=== PATIENT | female | born 1940 | race Caucasian/White ===

== ENCOUNTER 2018-12-11 13:58 | Inpatient (IN) | payer MEDICARE, BC ==
[2018-12-11] MEDS: Sodium Chloride 0.9% with KCl 1,000 ML IV SCH (17:00)
[2018-12-11] MEDS: Piperacillin/Tazobactam 2.25 GM in Sodium Chloride 0.9% 50 ML IV SCH ×2 (17:22→22:47)
--- NOTE | 2018-12-11 17:36 | PCM.HP ---
H&P History of Present Illness - General Date of Service: 12/11/18 Admit Problem/Dx: Admission Diagnosis/Problem Admission Diagnosis/Problem Urinary tract infection Source of Information: Patient, Family History Limitations: Reports: No Limitations - History of Present Illness Initial Comments - Free Text/Narative: 78 yr female presents to clinic today with some weakness, fatigue, decrease in appetite, and some confusion. Recent travel to [facility] and asking about possible infection from this out of state vacation. They have been home for about 7 days and did have air travel with the vacation. Pt has no symptoms of burning of urination and no CVA tenderness. Kindly refer to clinic notes for this admission assessment, scanned in to record. - Related Data Allergies/Adverse Reactions: Allergies Allergy/AdvReac Type Severity Reaction Status Date / Time Sulfa (Sulfonamide Allergy Unknown Other Verified 12/11/18 16:15 Antibiotics) H&P Review of Systems - Review of Systems: Review Of Systems: See Below General: Reports: Weakness, Fatigue Pulmonary: Denies: Shortness of Breath, Wheezing Cardiovascular: Denies: Chest Pain, Palpitations Gastrointestinal: Reports: Decreased Appetite Genitourinary: Denies: Dysuria, Frequency, Burning Musculoskeletal: Reports: No Symptoms Skin: Reports: No Symptoms Psychiatric: Reports: Confusion. Denies: Depression, Anxiety Neurological: Denies: Headache, Numbness, Trouble Speaking Hematologic/Lymphatic: Reports: Easy Bleeding (on Coumadin) Immunologic: Reports: No Symptoms Exam - Exam Exam: See Below - Vital Signs Vital Signs: Last Vital Signs Temp 97.6 F 12/11/18 16:00 Pulse 108 H 12/11/18 16:00 Resp 10 L 12/11/18 16:00 BP 142/79 H 12/11/18 16:00 Pulse Ox 98 12/11/18 16:00 Weight: 145 lb 12.8 oz - Exam General: Alert, Oriented HEENT: PERRLA, Mucosa Moist & [place], Posterior Pharynx Clear Neck: Supple, Trachea Midline, Full Range of Motion Lungs: Clear to Auscultation, Normal Respiratory Effort Cardiovascular: Irregular Rhythm GI/Abdominal Exam: Normal Bowel Sounds, Soft, Non-Tender Back Exam: Normal Inspection, Full Range of Motion. No: CVA Tenderness (R), CVA Tenderness (L) Extremities: Normal Inspection, Normal Range of Motion, Non-Tender, No Pedal Edema Skin: Warm, Dry Neuro Extensive - Mental Status: Alert, Oriented x3, Normal Mood/Affect - Patient Data Lab Results Last 24 hrs: Laboratory Results - last 24 hr 12/11/18 12/11/18 12/11/18 Range/Units 14:10 14:10 14:10 WBC 18.1 H D (4.0-11.0) K/uL RBC 4.60 (3.80-5.80) M/uL Hgb 15.5 (11.5-16.5) g/dL Hct 42.7 (37.0-47.0) % MCV 93 (76-96) fL MCH 33.7 H (27.0-32.0) pg MCHC 36.3 H (31.0-35.0) g/dL RDW 12.9 (11.0-16.0) % Plt Count 328 D (150-500) K/uL MPV 9.5 (6.0-10.0) fL Neut % (Auto) 86.7 H (45.0-70.0) % Lymph % (Auto) 5.2 L (20.0-40.0) % [place] % (Auto) 7.8 (3.0-10.0) % Eos % (Auto) 0.1 L (1.0-5.0) % Baso % (Auto) 0.2 (0.0-0.5) % Neut # (Auto) 15.73 H (2.00-7.50) K/uL Lymph # (Auto) 0.94 L (1.50-4.00) K/uL [place] # (Auto) 1.42 H (0.20-0.80) K/uL Eos # (Auto) 0.01 L (0.04-0.40) K/uL Baso # (Auto) 0.03 (0.02-0.10) K/uL PT (9.0-11.5) sec INR (1.0-3.5) Sodium 128 L (136-145) mmol/L Potassium 3.3 L D (3.5-5.1) mmol/L Chloride 88 L* (98-107) mmol/L Carbon Dioxide 27.4 (21.0-32.0) mmol/L Anion Gap 15.9 H (5.0-15.0) mmol/L BUN 37 H D (8-26) mg/dL Creatinine 1.64 H D (0.55-1.02) mg/dL Est Cr Clr Drug Dosing TNP Estimated GFR (MDRD) 30 L (>60) MLS/MIN BUN/Creatinine Ratio 22.6 (6-25) Glucose 147 H (74-100) mg/dL Hemoglobin A1c 6.0 (4.5-6.2) % Lactic Acid (0.90-1.70) mmol/L Calcium 9.3 (8.5-10.1) mg/dL Total Bilirubin 0.9 D (0.0-1.0) mg/dL AST 22 (15-37) U/L ALT 37 (12-78) U/L Alkaline Phosphatase 85 (46-116) U/L Total Protein 7.5 (6.4-8.2) g/dL Albumin 2.7 L (3.4-5.0) g/dL Globulin 4.8 H (2.2-4.2) g/dL Albumin/Globulin Ratio 0.6 L (0.8-2.0) TSH, Ultra Sensitive 2.551 (0.358-3.740) uIU/mL Urine Color Urine Appearance (CLEAR) Urine pH (5.0-8.0) Ur Specific [place] (1.003-1.030) Urine Protein (NEGATIVE) mg/dL Urine Glucose (UA) (NEGATIVE) mg/dL Urine Ketones (NEGATIVE) mg/dL Urine Occult Blood (NEGATIVE) Urine Nitrite (NEGATIVE) Urine Bilirubin (NEGATIVE) Urine Urobilinogen (0.2-1.0) E.U./dL Ur Leukocyte Esterase (NEGATIVE) Urine RBC /HPF Urine WBC /HPF Urine WBC Clumps /HPF Ur Squamous Epith Cells /HPF Urine Bacteria /HPF 12/11/18 12/11/18 12/11/18 Range/Units 14:10 14:10 16:15 WBC (4.0-11.0) K/uL RBC (3.80-5.80) M/uL Hgb (11.5-16.5) g/dL Hct (37.0-47.0) % MCV (76-96) fL MCH (27.0-32.0) pg MCHC (31.0-35.0) g/dL RDW (11.0-16.0) % Plt Count (150-500) K/uL MPV (6.0-10.0) fL Neut % (Auto) (45.0-70.0) % Lymph % (Auto) (20.0-40.0) % [place] % (Auto) (3.0-10.0) % Eos % (Auto) (1.0-5.0) % Baso % (Auto) (0.0-0.5) % Neut # (Auto) (2.00-7.50) K/uL Lymph # (Auto) (1.50-4.00) K/uL [place] # (Auto) (0.20-0.80) K/uL Eos # (Auto) (0.04-0.40) K/uL Baso # (Auto) (0.02-0.10) K/uL PT 32.8 H D (9.0-11.5) sec INR 3.5 D (1.0-3.5) Sodium (136-145) mmol/L Potassium (3.5-5.1) mmol/L Chloride (98-107) mmol/L Carbon Dioxide (21.0-32.0) mmol/L Anion Gap (5.0-15.0) mmol/L BUN (8-26) mg/dL Creatinine (0.55-1.02) mg/dL Est Cr Clr Drug Dosing Estimated GFR (MDRD) (>60) MLS/MIN BUN/Creatinine Ratio (6-25) Glucose (74-100) mg/dL Hemoglobin A1c (4.5-6.2) % Lactic Acid 2.25 H (0.90-1.70) mmol/L Calcium (8.5-10.1) mg/dL Total Bilirubin (0.0-1.0) mg/dL AST (15-37) U/L ALT (12-78) U/L Alkaline Phosphatase (46-116) U/L Total Protein (6.4-8.2) g/dL Albumin (3.4-5.0) g/dL Globulin (2.2-4.2) g/dL Albumin/Globulin Ratio (0.8-2.0) TSH, Ultra Sensitive (0.358-3.740) uIU/mL Urine Color Yellow Urine Appearance Cloudy (CLEAR) Urine pH 5.5 (5.0-8.0) Ur Specific [place] 1.020 (1.003-1.030) Urine Protein 100 H (NEGATIVE) mg/dL Urine Glucose (UA) Negative (NEGATIVE) mg/dL Urine Ketones Trace H (NEGATIVE) mg/dL Urine Occult Blood Small H (NEGATIVE) Urine Nitrite Negative (NEGATIVE) Urine Bilirubin Negative (NEGATIVE) Urine Urobilinogen 0.2 (0.2-1.0) E.U./dL Ur Leukocyte Esterase Moderate H (NEGATIVE) Urine RBC Not seen /HPF Urine WBC Packed H /HPF Urine WBC Clumps Occasional /HPF Ur Squamous Epith Cells Few /HPF Urine Bacteria Moderate H /HPF Result Diagrams: 12/11/18 14:10 12/11/18 14:10 - Problem List (1) UTI (urinary tract infection) SNOMED Code(s): 14148224 ICD Code: N39.0 - URINARY TRACT INFECTION, SITE NOT SPECIFIED Status: Acute Current Visit: Yes (2) Weakness SNOMED Code(s): 97200845 ICD Code: R53.1 - WEAKNESS Status: Acute Current Visit: Yes (3) Electrolyte imbalance SNOMED Code(s): 105705386 ICD Code: E87.8 - OTH DISORDERS OF ELECTROLYTE AND FLUID BALANCE, NEC Status: Acute Current Visit: Yes (4) Acute nontraumatic kidney injury SNOMED Code(s): 414748973355494 ICD Code: N17.9 - ACUTE KIDNEY FAILURE, UNSPECIFIED Status: Acute Current Visit: Yes Problem List Initiated/Reviewed/Updated: Yes Orders Last 24hrs: Active Orders 24 hr Category Date Time Status Admission Diagnosis [ADT] Stat ADT 12/11/18 15:56 Ordered Patient Status [ADT] Routine ADT 12/11/18 15:58 Ordered Bedrest Bathroom Privileges [RC] ASDIRECTED Care 12/11/18 16:00 Ordered Height and Weight [RC] DAILY Care 12/11/18 16:00 Ordered Intake and Output [RC] QSHIFT Care 12/11/18 16:01 Ordered Oxygen Therapy [RC] PRN Care 12/11/18 16:00 Ordered Vital Signs [RC] Q4H Care 12/11/18 16:00 Ordered Heart Healthy Diet [DIET] Diet 12/11/18 Dinner Ordered BASIC METABOLIC PANEL,BMP [CHEM] Routine Lab 12/12/18 07:30 Ordered CBC WITH AUTO DIFF [HEME] Routine Lab 12/12/18 07:30 Ordered CULTURE BLOOD [BC] Routine Lab 12/11/18 15:55 Ordered CULTURE BLOOD [BC] Routine Lab 12/11/18 15:56 Ordered CULTURE MRSA SURVEY [RM] Routine Lab 12/11/18 16:01 Ordered CULTURE URINE [RM] Routine Lab 12/11/18 14:10 Received INR,PT,PROTHROMBIN TIME [COAG] Routine Lab 12/12/18 07:30 Ordered Piperacillin/Tazobactam [Zosyn] 2.25 gm Med 12/11/18 16:15 Ordered Sodium Chloride 0.9% [Normal Saline] 50 ml IV Q6H Sodium Chloride 0.9% with KCl [Normal Saline with 40 Med 12/11/18 16:00 Ordered mEq KCl] 1,000 ml IV ASDIRECTED Medication Orders Potassium Chloride/Sodium Chloride (Normal Saline With 40 Meq Kcl) 1,000 mls @ 125 mls/hr IV ASDIRECTED [facility] Last Admin: 12/11/18 17:00 Dose: 125 mls/hr Piperacillin Sod/Tazobactam (Sod 2.25 gm/ Sodium Chloride) 50 mls @ 100 mls/hr IV Q6H [facility] Last Admin: 12/11/18 17:22 Dose: 100 mls/hr Assessment/Plan Comment:: Admit for UTI, weakness, electrolyte imbalance, and acute kidney injury Plan: Will start IV fluids, Blood cultureX2, lactic acid, PT/INR. Will start Zosyn 2.25 IV every 6 hour. Heart healthy diet VS q 4 hr Repeat CBC, BMP and PT/INR in am.
[2018-12-11] MEDS ORDERED: Warfarin 2 MG Tab PO SCH (18:00)
[2018-12-11] MEDS: Metoprolol Tartrate 100 MG Tab PO SCH (19:50)
[2018-12-12] MEDS: Piperacillin/Tazobactam 2.25 GM in Sodium Chloride 0.9% 50 ML IV SCH ×4 (04:22→22:31)
[2018-12-12] MEDS: Lisinopril 20 MG Tab PO SCH (08:19)
[2018-12-12] MEDS: Metoprolol Tartrate 100 MG Tab PO SCH ×2 (08:19→20:16)
--- NOTE | 2018-12-12 08:22 | PCM.PN ---
- General Info Date of Service: 12/12/18 Admission Dx/Problem (Free Text): Admission Diagnosis/Problem Admission Diagnosis/Problem Urinary tract infection Subjective Update: 78 yr female with UTI and confusion and decrease in appetite. She is feeling better today, but little appetite. States she would prefer to be home and sleep in own bed. Functional Status: Reports: Pain Controlled, Tolerating Diet, Ambulating, Urinating - Review of Systems General: Reports: No Symptoms HEENT: Reports: No Symptoms Pulmonary: Reports: No Symptoms Cardiovascular: Reports: No Symptoms Gastrointestinal: Reports: Other (States BM yesterday) Genitourinary: Denies: Dysuria, Frequency Musculoskeletal: Reports: No Symptoms Skin: Reports: No Symptoms Neurological: Reports: No Symptoms Psychiatric: Reports: No Symptoms - Patient Data Vitals - Most Recent: Last Vital Signs Temp 96.7 F 12/12/18 04:00 Pulse 91 12/12/18 04:00 Resp 16 12/12/18 04:00 BP 112/65 12/12/18 04:00 Pulse Ox 99 12/12/18 04:00 Weight - Most Recent: 145 lb 12.8 oz I&O - Last 24 Hours: Intake & Output 12/11/18 12/12/18 12/12/18 22:59 06:59 14:59 Intake Total 300 1620 Output Total 300 Balance 300 1320 Lab Results Last 24 Hours: Laboratory Results - last 24 hr 12/11/18 12/11/18 12/11/18 Range/Units 14:10 14:10 14:10 WBC 18.1 H D (4.0-11.0) K/uL RBC 4.60 (3.80-5.80) M/uL Hgb 15.5 (11.5-16.5) g/dL Hct 42.7 (37.0-47.0) % MCV 93 (76-96) fL MCH 33.7 H (27.0-32.0) pg MCHC 36.3 H (31.0-35.0) g/dL RDW 12.9 (11.0-16.0) % Plt Count 328 D (150-500) K/uL MPV 9.5 (6.0-10.0) fL Neut % (Auto) 86.7 H (45.0-70.0) % Lymph % (Auto) 5.2 L (20.0-40.0) % [place] % (Auto) 7.8 (3.0-10.0) % Eos % (Auto) 0.1 L (1.0-5.0) % Baso % (Auto) 0.2 (0.0-0.5) % Neut # (Auto) 15.73 H (2.00-7.50) K/uL Lymph # (Auto) 0.94 L (1.50-4.00) K/uL [place] # (Auto) 1.42 H (0.20-0.80) K/uL Eos # (Auto) 0.01 L (0.04-0.40) K/uL Baso # (Auto) 0.03 (0.02-0.10) K/uL PT (9.0-11.5) sec INR (1.0-3.5) Sodium 128 L (136-145) mmol/L Potassium 3.3 L D (3.5-5.1) mmol/L Chloride 88 L* (98-107) mmol/L Carbon Dioxide 27.4 (21.0-32.0) mmol/L Anion Gap 15.9 H (5.0-15.0) mmol/L BUN 37 H D (8-26) mg/dL Creatinine 1.64 H D (0.55-1.02) mg/dL Est Cr Clr Drug Dosing TNP Estimated GFR (MDRD) 30 L (>60) MLS/MIN BUN/Creatinine Ratio 22.6 (6-25) Glucose 147 H (74-100) mg/dL Hemoglobin A1c 6.0 (4.5-6.2) % Lactic Acid (0.90-1.70) mmol/L Calcium 9.3 (8.5-10.1) mg/dL Total Bilirubin 0.9 D (0.0-1.0) mg/dL AST 22 (15-37) U/L ALT 37 (12-78) U/L Alkaline Phosphatase 85 (46-116) U/L Total Protein 7.5 (6.4-8.2) g/dL Albumin 2.7 L (3.4-5.0) g/dL Globulin 4.8 H (2.2-4.2) g/dL Albumin/Globulin Ratio 0.6 L (0.8-2.0) TSH, Ultra Sensitive 2.551 (0.358-3.740) uIU/mL Urine Color Urine Appearance (CLEAR) Urine pH (5.0-8.0) Ur Specific [place] (1.003-1.030) Urine Protein (NEGATIVE) mg/dL Urine Glucose (UA) (NEGATIVE) mg/dL Urine Ketones (NEGATIVE) mg/dL Urine Occult Blood (NEGATIVE) Urine Nitrite (NEGATIVE) Urine Bilirubin (NEGATIVE) Urine Urobilinogen (0.2-1.0) E.U./dL Ur Leukocyte Esterase (NEGATIVE) Urine RBC /HPF Urine WBC /HPF Urine WBC Clumps /HPF Ur Squamous Epith Cells /HPF Urine Bacteria /HPF 12/11/18 12/11/18 12/11/18 Range/Units 14:10 14:10 16:15 WBC (4.0-11.0) K/uL RBC (3.80-5.80) M/uL Hgb (11.5-16.5) g/dL Hct (37.0-47.0) % MCV (76-96) fL MCH (27.0-32.0) pg MCHC (31.0-35.0) g/dL RDW (11.0-16.0) % Plt Count (150-500) K/uL MPV (6.0-10.0) fL Neut % (Auto) (45.0-70.0) % Lymph % (Auto) (20.0-40.0) % [place] % (Auto) (3.0-10.0) % Eos % (Auto) (1.0-5.0) % Baso % (Auto) (0.0-0.5) % Neut # (Auto) (2.00-7.50) K/uL Lymph # (Auto) (1.50-4.00) K/uL [place] # (Auto) (0.20-0.80) K/uL Eos # (Auto) (0.04-0.40) K/uL Baso # (Auto) (0.02-0.10) K/uL PT 32.8 H D (9.0-11.5) sec INR 3.5 D (1.0-3.5) Sodium (136-145) mmol/L Potassium (3.5-5.1) mmol/L Chloride (98-107) mmol/L Carbon Dioxide (21.0-32.0) mmol/L Anion Gap (5.0-15.0) mmol/L BUN (8-26) mg/dL Creatinine (0.55-1.02) mg/dL Est Cr Clr Drug Dosing Estimated GFR (MDRD) (>60) MLS/MIN BUN/Creatinine Ratio (6-25) Glucose (74-100) mg/dL Hemoglobin A1c (4.5-6.2) % Lactic Acid 2.25 H (0.90-1.70) mmol/L Calcium (8.5-10.1) mg/dL Total Bilirubin (0.0-1.0) mg/dL AST (15-37) U/L ALT (12-78) U/L Alkaline Phosphatase (46-116) U/L Total Protein (6.4-8.2) g/dL Albumin (3.4-5.0) g/dL Globulin (2.2-4.2) g/dL Albumin/Globulin Ratio (0.8-2.0) TSH, Ultra Sensitive (0.358-3.740) uIU/mL Urine Color Yellow Urine Appearance Cloudy (CLEAR) Urine pH 5.5 (5.0-8.0) Ur Specific [place] 1.020 (1.003-1.030) Urine Protein 100 H (NEGATIVE) mg/dL Urine Glucose (UA) Negative (NEGATIVE) mg/dL Urine Ketones Trace H (NEGATIVE) mg/dL Urine Occult Blood Small H (NEGATIVE) Urine Nitrite Negative (NEGATIVE) Urine Bilirubin Negative (NEGATIVE) Urine Urobilinogen 0.2 (0.2-1.0) E.U./dL Ur Leukocyte Esterase Moderate H (NEGATIVE) Urine RBC Not seen /HPF Urine WBC Packed H /HPF Urine WBC Clumps Occasional /HPF Ur Squamous Epith Cells Few /HPF Urine Bacteria Moderate H /HPF Med Orders - Current: Current Medications Potassium Chloride/Sodium Chloride (Normal Saline With 40 Meq Kcl) 1,000 mls @ 125 mls/hr IV ASDIRECTED [facility] Last Infusion: 12/11/18 23:27 Dose: 50 mls/hr Piperacillin Sod/Tazobactam (Sod 2.25 gm/ Sodium Chloride) 50 mls @ 100 mls/hr IV Q6H [facility] Last Admin: 12/12/18 04:22 Dose: 100 mls/hr Lisinopril (Prinivil) 20 mg PO DAILY [facility] Metoprolol Tartrate (Lopressor) 100 mg PO Q12HR [facility] Last Admin: 12/11/18 19:50 Dose: 100 mg Warfarin Sodium (Coumadin) 2 mg PO DAILY@1800 [facility] Last Admin: 12/11/18 19:37 Dose: Not Given - Exam General: Alert, Oriented, Cooperative HEENT: Mucous Membr. Moist/[place] Neck: Supple, Trachea Midline Lungs: Clear to Auscultation, Normal Respiratory Effort Cardiovascular: Irregular Rhythm GI/Abdominal Exam: Normal Bowel Sounds, Soft, Non-Tender Extremities: Normal Range of Motion, Non-Tender, No Pedal Edema Skin: Warm, Dry Neurological: No New Focal Deficit, Strength Equal Bilateral Psy/Mental Status: Alert, Normal Affect, Normal Mood - Problem List & Annotations (1) UTI (urinary tract infection) SNOMED Code(s): 44142427 Code(s): N39.0 - URINARY TRACT INFECTION, SITE NOT SPECIFIED Status: Acute Current Visit: Yes (2) Weakness SNOMED Code(s): 65397779 Code(s): R53.1 - WEAKNESS Status: Acute Current Visit: Yes (3) Electrolyte imbalance SNOMED Code(s): 176393664 Code(s): E87.8 - OTH DISORDERS OF ELECTROLYTE AND FLUID BALANCE, NEC Status : Acute Current Visit: Yes (4) Acute nontraumatic kidney injury SNOMED Code(s): 626748685047484 Code(s): N17.9 - ACUTE KIDNEY FAILURE, UNSPECIFIED Status: Acute Current Visit: Yes - Problem List Review Problem List Initiated/Reviewed/Updated: Yes - My Orders Last 24 Hours: My Active Orders 12/11/18 14:10 CULTURE URINE [RM] Routine 12/11/18 15:56 Admission Diagnosis [ADT] Stat 12/11/18 15:58 Patient Status [ADT] Routine 12/11/18 16:00 Bedrest Bathroom Privileges [RC] ASDIRECTED Height and Weight [RC] DAILY Oxygen Therapy [RC] PRN Vital Signs [RC] Q4H CULTURE BLOOD [BC] Routine Sodium Chloride 0.9% with KCl [Normal Saline with 40 mEq KCl] 1,000 ml IV ASDIRECTED 12/11/18 16:01 Intake and Output [RC] 06,18 CULTURE MRSA SURVEY [RM] Routine 12/11/18 16:30 CULTURE BLOOD [BC] Routine Piperacillin/Tazobactam [Zosyn] 2.25 gm Sodium Chloride 0.9% [Normal Saline] 50 ml IV Q6H 12/11/18 18:00 Warfarin [Coumadin] 2 mg PO DAILY@1800 12/11/18 20:00 Metoprolol Tartrate [Lopressor] 100 mg PO Q12HR 12/11/18 Dinner Heart Healthy Diet [DIET] 12/12/18 07:30 BASIC METABOLIC PANEL,BMP [CHEM] Routine CBC WITH AUTO DIFF [HEME] Routine INR,PT,PROTHROMBIN TIME [COAG] Routine 12/12/18 08:00 INR,PT,PROTHROMBIN TIME [COAG] Routine Lisinopril [Prinivil] 20 mg PO DAILY - Plan Plan:: Admit for UTI, weakness, electrolyte imbalance, and acute kidney injury Plan: Will start IV fluids, Blood cultureX2, lactic acid, PT/INR. Will start Zosyn 2.25 IV every 6 hour. Heart healthy diet VS q 4 hr Repeat CBC, BMP and PT/INR in am. 12-12-18 Pt states she feels good and would like to go home today. Counseled pt on improvement of labs, but with this urosepsis noted, will need to continue antibiotic IV through today and recheck labs in am. Gram neg rods to urine and blood cultures positive. Improvement noted in WBC and BMP today. PT/INR elevated. Continue to hold Coumadin. C&S report is pending. Continue with Zosyn as improvement noted with WBC. Repeat CBC, PT/INR in am.
[2018-12-13] MEDS: Piperacillin/Tazobactam 2.25 GM in Sodium Chloride 0.9% 50 ML IV SCH ×4 (04:08→22:09)
[2018-12-13] MEDS: Metoprolol Tartrate 100 MG Tab PO SCH ×2 (07:30→20:18)
[2018-12-13] MEDS: Lisinopril 20 MG Tab PO SCH (07:30)
[2018-12-13] MEDS: Sodium Chloride 0.9% with KCl 1,000 ML IV SCH (08:24)
--- NOTE | 2018-12-13 09:04 | PCM.PN ---
- General Info Date of Service: 12/13/18 Admission Dx/Problem (Free Text): Admission Diagnosis/Problem Admission Diagnosis/Problem Urinary tract infection Subjective Update: Pt states she is having some loose stool now and continues with little appetite. Staff report some confusion in evening. Functional Status: Reports: Tolerating Diet, Ambulating, Urinating - Review of Systems General: Reports: No Symptoms HEENT: Reports: No Symptoms Pulmonary: Reports: No Symptoms. Denies: Shortness of Breath, Cough Cardiovascular: Reports: No Symptoms. Denies: Chest Pain, Palpitations Gastrointestinal: Reports: Decreased Appetite, Diarrhea. Denies: Abdominal Pain , Nausea, Vomiting Genitourinary: Reports: No Symptoms Musculoskeletal: Reports: No Symptoms Skin: Reports: No Symptoms Neurological: Reports: No Symptoms Psychiatric: Reports: No Symptoms - Patient Data Vitals - Most Recent: Last Vital Signs Temp 96.7 F 12/13/18 07:41 Pulse 75 12/13/18 07:41 Resp 18 12/13/18 07:41 BP 133/90 12/13/18 07:41 Pulse Ox 100 12/13/18 07:41 Weight - Most Recent: 145 lb 12.8 oz I&O - Last 24 Hours: Intake & Output 12/12/18 12/13/18 12/13/18 22:59 06:59 14:59 Intake Total 1100 100 Output Total 100 Balance 1000 100 Lab Results Last 24 Hours: Laboratory Results - last 24 hr 12/12/18 12/13/18 Range/Units 07:15 08:40 WBC 16.7 H (4.0-11.0) K/uL RBC 4.20 (3.80-5.80) M/uL Hgb 14.2 (11.5-16.5) g/dL Hct 39.9 (37.0-47.0) % MCV 95 (76-96) fL MCH 33.8 H (27.0-32.0) pg MCHC 35.6 H (31.0-35.0) g/dL RDW 13.3 (11.0-16.0) % Plt Count 352 (150-500) K/uL MPV 9.0 (6.0-10.0) fL Neut % (Auto) 89.3 H (45.0-70.0) % Lymph % (Auto) 5.6 L (20.0-40.0) % [place] % (Auto) 4.7 (3.0-10.0) % Eos % (Auto) 0.2 L (1.0-5.0) % Baso % (Auto) 0.2 (0.0-0.5) % Neut # (Auto) 14.88 H (2.00-7.50) K/uL Lymph # (Auto) 0.93 L (1.50-4.00) K/uL [place] # (Auto) 0.78 (0.20-0.80) K/uL Eos # (Auto) 0.04 (0.04-0.40) K/uL Baso # (Auto) 0.03 (0.02-0.10) K/uL PT 47.4 H D (9.0-11.5) sec INR 5.2 H* D (1.0-3.5) John Results Last 24 Hours: Microbiology 12/11/18 16:30 Aerobic Blood Culture - Preliminary Blood NO GROWTH AFTER 1 DAY Anaerobic Blood Culture - Preliminary NO GROWTH AFTER 1 DAY 12/11/18 16:00 Aerobic Blood Culture - Preliminary Blood Gram Negative Rods Anaerobic Blood Culture - Preliminary NO GROWTH AFTER 1 DAY 12/11/18 14:10 Urine Culture - Preliminary Urine, Voided Gram Negative Rods Med Orders - Current: Current Medications Potassium Chloride/Sodium Chloride (Normal Saline With 40 Meq Kcl) 1,000 mls @ 125 mls/hr IV ASDIRECTED [facility] Last Admin: 12/13/18 08:24 Dose: 50 mls/hr Piperacillin Sod/Tazobactam (Sod 2.25 gm/ Sodium Chloride) 50 mls @ 100 mls/hr IV Q6H [facility] Last Admin: 12/13/18 04:08 Dose: 100 mls/hr Lisinopril (Prinivil) 20 mg PO DAILY [facility] Last Admin: 12/13/18 07:30 Dose: 20 mg Metoprolol Tartrate (Lopressor) 100 mg PO Q12HR [facility] Last Admin: 12/13/18 07:30 Dose: 100 mg Warfarin Sodium (Coumadin) 2 mg PO DAILY@1800 [facility] Last Admin: 12/11/18 19:37 Dose: Not Given Discontinued Medications Piperacillin Sod/Tazobactam (Sod 2.25 gm/ Sodium Chloride) 50 mls @ 100 mls/hr IV Q6H [facility] Last Admin: 12/12/18 04:22 Dose: 100 mls/hr - Exam General: Alert, Oriented, Cooperative, No Acute Distress HEENT: Mucous Membr. Moist/[place] Neck: Supple, Trachea Midline Lungs: Clear to Auscultation, Normal Respiratory Effort Cardiovascular: Irregular Rhythm GI/Abdominal Exam: Normal Bowel Sounds, Soft, Non-Tender, No Distention Extremities: Normal Inspection, Normal Range of Motion, Non-Tender, No Pedal Edema Peripheral Pulses: 2+: Dorsalis Pedis (L), Dorsalis Pedis (R) Skin: Warm, Dry Neurological: Normal Gait, Normal Speech, Reflexes Equal Bilateral Psy/Mental Status: Alert, Normal Affect, Normal Mood - Problem List & Annotations (1) UTI (urinary tract infection) SNOMED Code(s): 71529319 Code(s): N39.0 - URINARY TRACT INFECTION, SITE NOT SPECIFIED Status: Acute Current Visit: Yes (2) Weakness SNOMED Code(s): 32377047 Code(s): R53.1 - WEAKNESS Status: Acute Current Visit: Yes (3) Electrolyte imbalance SNOMED Code(s): 669765733 Code(s): E87.8 - OTH DISORDERS OF ELECTROLYTE AND FLUID BALANCE, NEC Status : Acute Current Visit: Yes (4) Acute nontraumatic kidney injury SNOMED Code(s): 389744008077300 Code(s): N17.9 - ACUTE KIDNEY FAILURE, UNSPECIFIED Status: Acute Current Visit: Yes - Problem List Review Problem List Initiated/Reviewed/Updated: Yes - My Orders Last 24 Hours: My Active Orders 12/12/18 10:00 Piperacillin/Tazobactam [Zosyn] 2.25 gm Sodium Chloride 0.9% [Normal Saline] 50 ml IV Q6H 12/13/18 08:40 BASIC METABOLIC PANEL,BMP [CHEM] Routine INR,PT,PROTHROMBIN TIME [COAG] Routine - Plan Plan:: Admit for UTI, weakness, electrolyte imbalance, and acute kidney injury Plan: Will start IV fluids, Blood cultureX2, lactic acid, PT/INR. Will start Zosyn 2.25 IV every 6 hour. Heart healthy diet VS q 4 hr Repeat CBC, BMP and PT/INR in am. 12-12-18 Pt states she feels good and would like to go home today. Counseled pt on improvement of labs, but with this urosepsis noted, will need to continue antibiotic IV through today and recheck labs in am. Gram neg rods to urine and blood cultures positive. Improvement noted in WBC and BMP today. PT/INR elevated. Continue to hold Coumadin. C&S report is pending. Continue with Zosyn as improvement noted with WBC. Repeat CBC, PT/INR in am. 12-13-18 Pt reports feeling ok and notices some loose stools and some confusion. Counseled on UTI and sepsis. WBC remains elevated. INR is 2.6 today. Will add on Levaquin, so will continue to hold Coumadin 1 more day. Plan: Will add Levaquin 250mg PO daily today. Probiotic daily. D/c IV fluids and saline lock IV Continue to hold Coumadin. Recheck CBC and INR in am. Possible discharge to home tomorrow.
[2018-12-13] MEDS: Levofloxacin 500 MG Tab PO SCH (09:43)
[2018-12-13] MEDS: Lactobacillus Acidophilus/Lactobacillus Sporogenes (Probiotic) Tab PO SCH (09:44)
[2018-12-14] MEDS: Piperacillin/Tazobactam 2.25 GM in Sodium Chloride 0.9% 50 ML IV SCH ×2 (04:09→10:41)
[2018-12-14] MEDS: Lisinopril 20 MG Tab PO SCH (08:31)
[2018-12-14] MEDS: Lactobacillus Acidophilus/Lactobacillus Sporogenes (Probiotic) Tab PO SCH (08:31)
[2018-12-14] MEDS: Metoprolol Tartrate 100 MG Tab PO SCH (08:32)
[2018-12-14] MEDS: Levofloxacin 500 MG Tab PO SCH (10:38)
--- NOTE | 2018-12-14 11:48 | PCM.DCSUM1 ---
Discharge Summary - Hospital Course HPI Initial Comments: 78 yr female presented to clinic with confusion, weakness, decrease in appetite. Urosepsis noted with elevated WBC, positive urine and blood cultures with e-coli. Pt has been treated with 3 days of IV Zosyn and has had 2 doses of Levaquin. She did develop some diarrhea with the antibiotic and probiotic was started. Some improvement with appetite. Some confusion at times persists. At this time it is undetermined if this is related to the current diagnosis or if there is other etiology. [facility] [place] [facility] Lev[facility] and Probiotic. INR is 1.8 today. Will restart the Coumadin, this had been held since her admit and was elevated with start of antibiotic. Will discharge today and RTC in 1-2 days for follow-up. Diagnosis: Stroke: No - Discharge Data Discharge Date: 12/14/18 Discharge Disposition: Home, Self-Care 01 Condition: Good - Discharge Diagnosis/Problem(s) (1) UTI (urinary tract infection) SNOMED Code(s): 87139541 ICD Code: N39.0 - URINARY TRACT INFECTION, SITE NOT SPECIFIED Status: Acute Current Visit: Yes (2) Weakness SNOMED Code(s): 62021979 ICD Code: R53.1 - WEAKNESS Status: Acute Current Visit: Yes (3) Electrolyte imbalance SNOMED Code(s): 840563343 ICD Code: E87.8 - OTH DISORDERS OF ELECTROLYTE AND FLUID BALANCE, NEC Status: Acute Current Visit: Yes (4) Acute nontraumatic kidney injury SNOMED Code(s): 210635323721097 ICD Code: N17.9 - ACUTE KIDNEY FAILURE, UNSPECIFIED Status: Acute Current Visit: Yes - Discharge Plan *PRESCRIPTION DRUG MONITORING PROGRAM REVIEWED*: Not Applicable *COPY OF PRESCRIPTION DRUG MONITORING REPORT IN PATIENT FERNANDEZ: Not Applicable Prescriptions/Med Rec: Acidophilus/Lactobac Spor [Acidolphilus X-Strength] 1 tab PO DAILY #14 tablet levoFLOXacin [Levaquin] 500 mg PO Q24H #10 tablet Home Medications: Home Meds Calcium Carbonate/Vitamin D3 [Calcium 600 + Vit D 200] 1 each PO DAILY 12/11/18 [History] Lisinopril 20 mg PO DAILY 12/11/18 [History] Loratadine 10 mg PO DAILY PRN 12/11/18 [History] Metoprolol Tartrate 100 mg PO BID 12/11/18 [History] [place]-3/DHA/Epa/Fish Oil [[place]-3 Fish Oil 1,000 MG Sfgl] 1 cap PO BID 12/11/18 [History] Simvastatin 20 mg PO DAILY 12/11/18 [History] Warfarin Sodium [Jantoven] 2.5 mg PO DAILY 12/11/18 [History] Acidophilus/Lactobac Spor [Acidolphilus X-Strength] 1 tab PO DAILY #14 tablet [Rx] levoFLOXacin [Levaquin] 500 mg PO Q24H #10 tablet 12/14/18 [Rx] - Discharge Summary/Plan Comment DC Time >30 min.: No (Discharge to care of , new medication of Levaquin and probiotic.) Discharge Summary/Plan Comment: Will discharge today with Levaquin 500 mg PO daily for 10 days. Will continue with probiotic. Restart Coumadin 2.5 mg daily. RTC in 1-2 days for follow-up. - General Info Date of Service: 12/14/18 Admission Dx/Problem (Free Text: Admission Diagnosis/Problem Admission Diagnosis/Problem Urinary tract infection Subjective Update: Afebrile and some improvement with appetite. Pt is up as tolerated and moving well. Functional Status: Reports: Pain Controlled, Tolerating Diet, Ambulating, Urinating - Review of Systems General: Denies: Fever, Weakness HEENT: Reports: Glasses. Denies: Headaches, Sinus Congestion, Visual Changes Pulmonary: Denies: Shortness of Breath, Cough, Sputum Cardiovascular: Denies: Chest Pain, Palpitations, Edema, Lightheadedness Gastrointestinal: Reports: Decreased Appetite, Diarrhea. Denies: Constipation, Hematochezia, Melena Genitourinary: Reports: No Symptoms Musculoskeletal: Reports: No Symptoms Skin: Reports: No Symptoms Neurological: Denies: Dizziness, Headache Psychiatric: Denies: Depression, Agitation - Patient Data Vitals - Most Recent: Last Vital Signs Temp 98 F 12/14/18 09:00 Pulse 78 12/14/18 09:00 Resp 18 12/14/18 09:00 BP 113/88 12/14/18 09:00 Pulse Ox 98 12/14/18 09:00 Weight - Most Recent: 149 lb 9.6 oz I&O - Last 24 hours: Intake & Output 12/13/18 12/14/18 12/14/18 21:59 06:59 14:59 Intake Total Balance Lab Results - Last 24 hrs: Laboratory Results - last 24 hr 12/14/18 12/14/18 12/14/18 Range/Units 09:45 11:01 11:01 WBC 16.4 H (4.0-11.0) K/uL RBC 3.75 L (3.80-5.80) M/uL Hgb 12.7 (11.5-16.5) g/dL Hct 36.1 L (37.0-47.0) % MCV 96 (76-96) fL MCH 33.9 H (27.0-32.0) pg MCHC 35.2 H (31.0-35.0) g/dL RDW 13.5 (11.0-16.0) % Plt Count 426 D (150-500) K/uL MPV 8.8 (6.0-10.0) fL Neut % (Auto) 90.1 H (45.0-70.0) % Lymph % (Auto) 5.3 L (20.0-40.0) % [place] % (Auto) 4.3 (3.0-10.0) % Eos % (Auto) 0.2 L (1.0-5.0) % Baso % (Auto) 0.1 (0.0-0.5) % Neut # (Auto) 14.78 H (2.00-7.50) K/uL Lymph # (Auto) 0.87 L (1.50-4.00) K/uL [place] # (Auto) 0.71 (0.20-0.80) K/uL Eos # (Auto) 0.04 (0.04-0.40) K/uL Baso # (Auto) 0.02 (0.02-0.10) K/uL Whole Blood INR 1.8 (1.0-3.5) Sodium 137 (136-145) mmol/L Potassium 3.9 (3.5-5.1) mmol/L Chloride 99 (98-107) mmol/L Carbon Dioxide 26.9 (21.0-32.0) mmol/L Anion Gap 15.0 (5.0-15.0) mmol/L BUN 17 (8-26) mg/dL Creatinine 1.36 H (0.55-1.02) mg/dL Est Cr Clr Drug Dosing 35.50 mL/min Estimated GFR (MDRD) 38 L (>60) MLS/MIN BUN/Creatinine Ratio 12.5 (6-25) Glucose 153 H (74-100) mg/dL Calcium 8.2 L (8.5-10.1) mg/dL GET Results - Last 24 hrs: Microbiology 12/11/18 16:30 Aerobic Blood Culture - Preliminary Blood NO GROWTH AFTER 2 DAYS Anaerobic Blood Culture - Final Escherichia Coli 12/11/18 16:00 Aerobic Blood Culture - Final Blood Escherichia Coli Anaerobic Blood Culture - Final Escherichia Coli 12/11/18 14:10 Urine Culture - Final Urine, Voided Escherichia Coli 12/11/18 16:01 MRSA Surveillance Culture - Final Nares, Unspecified NO MRSA ISOLATED Med Orders - Current: Current Medications Piperacillin Sod/Tazobactam (Sod 2.25 gm/ Sodium Chloride) 50 mls @ 100 mls/hr IV Q6H [facility] Last Admin: 12/14/18 10:41 Dose: 100 mls/hr Lactobacillus Acidophilus (Acidolphilus Extra Strength) 1 tab PO DAILY [facility] Last Admin: 12/14/18 08:31 Dose: 1 tab Levofloxacin (Levaquin) 250 mg PO Q24H [facility] Last Admin: 12/14/18 10:38 Dose: 250 mg Lisinopril (Prinivil) 20 mg PO DAILY [facility] Last Admin: 12/14/18 08:31 Dose: 20 mg Metoprolol Tartrate (Lopressor) 100 mg PO Q12HR [facility] Last Admin: 12/14/18 08:32 Dose: 100 mg Warfarin Sodium (Coumadin) 2 mg PO DAILY@1800 [facility] Last Admin: 12/11/18 19:37 Dose: Not Given Discontinued Medications Potassium Chloride/Sodium Chloride (Normal Saline With 40 Meq Kcl) 1,000 mls @ 125 mls/hr IV ASDIRECTED [facility] Last Admin: 12/13/18 08:24 Dose: 50 mls/hr Piperacillin Sod/Tazobactam (Sod 2.25 gm/ Sodium Chloride) 50 mls @ 100 mls/hr IV Q6H [facility] Last Admin: 12/12/18 04:22 Dose: 100 mls/hr - Exam General: Reports: Alert, Oriented, Cooperative, No Acute Distress HEENT: Reports: Pupils Equal, Pupils Reactive, Mucous Membr. Moist/[place] Neck: Reports: Supple, Trachea Midline Lungs: Reports: Clear to Auscultation, Normal Respiratory Effort Cardiovascular: Reports: Irregular Rhythm GI/Abdominal Exam: Normal Bowel Sounds, Soft, Non-Tender, No Distention Back Exam: Reports: Normal Inspection, Full Range of Motion Extremities: Normal Inspection, Normal Range of Motion, Non-Tender, No Pedal Edema, Normal Capillary Refill Skin: Reports: Warm, Dry, Intact Neurological: Reports: No New Focal Deficit Psy/Mental Status: Reports: Alert, Normal Affect, Normal Mood
== END 2018-12-14 12:15 | disposition home or self-care (01) | DRG 872 ==
LOC: LB.CLINIC 13:58 → UNDOADMIN 15:34 → LB.MS 15:34
PROVIDERS: ADMIT Nurse Practitioner Family; ATTEND Nurse Practitioner Family
DX: A41.51 Sepsis due to Escherichia coli [E. coli] (principal); A41.9 Sepsis, unspecified organism; N39.0 Urinary tract infection, site not specified; R53.83 Other fatigue; K52.1 Toxic gastroenteritis and colitis; N17.9 Acute kidney failure, unspecified; R65.20 Severe sepsis without septic shock; R73.9 Hyperglycemia, unspecified; R53.1 Weakness; R63.0 Anorexia; R41.0 Disorientation, unspecified; Z79.01 Long term (current) use of anticoagulants; Z88.2 Allergy status to sulfonamides; Z79.899 Other long term (current) drug therapy; T36.95XA Adverse effect of unspecified systemic antibiotic, initial encounter; Y92.230 Patient room in hospital as the place of occurrence of the external cause; E87.8 Other disorders of electrolyte and fluid balance, not elsewhere classified
CPT/HCPCS: 36415; 80048; 80053; 81001; 83036; 83605; 84443; 85025; 85610; 87040; 87077; 87086; 87088; 87186; 93005; A9270-GY; J2543; J3480; J7050

== ENCOUNTER → 2019-10-02 | Outpatient (CLI) | payer MEDICARE, BC | LOC: LB.COAG 10:15 | PROVIDERS: ATTEND Nurse Practitioner Family | DX: I48.91 Unspecified atrial fibrillation (principal) | CPT/HCPCS: 85610 ==

== ENCOUNTER 2020-09-22 10:19 | Inpatient (IN) | payer MEDICARE, BC ==
[2020-09-22] MEDS ORDERED: Doxycycline 100 MG Cap ONE (10:20)
[2020-09-22] MEDS ORDERED: Sodium Chloride 0.9% 1,000 ML IV SCH (15:00)
[2020-09-22] MEDS ORDERED: Ondansetron 4 MG/2 ML SDV IV PRN (15:17)
[2020-09-22] MEDS ORDERED: Acetaminophen 325 MG Tab PO PRN (15:17)
[2020-09-22] MEDS: cefTRIAXone 2 GM in Sodium Chloride 0.9% 50 ML IV SCH (15:57)
--- NOTE | 2020-09-22 17:52 | PCM.HP.2 ---
H&P History of Present Illness - General Date of Service: 09/22/20 Admit Problem/Dx: pneumonia Source of Information: RN History Limitations: Reports: Altered Mental Status, Other (progressing dementia) - History of Present Illness Initial Comments - Free Text/Narative: Patient is an admit from [facility]. Patient has progressing dementia and has been losing weight and had increased confusion. Her presents with patient for direct admission for IV antibiotics for pneumonia. Patient denies any SOB, cough, fever, CP, abdominal pain. - Related Data Allergies/Adverse Reactions: Allergies Allergy/AdvReac Type Severity Reaction Status Date / Time Sulfa (Sulfonamide Allergy Unknown Other Verified 12/11/18 16:15 Antibiotics) Home Medications: Home Meds Calcium Carbonate/Vitamin D3 [Calcium 600 + Vit D 200] 1 each PO DAILY 12/11/18 [History] Lisinopril 20 mg PO DAILY 12/11/18 [History] Loratadine 10 mg PO DAILY PRN 12/11/18 [History] Metoprolol Tartrate 100 mg PO BID 12/11/18 [History] [place]-3/DHA/Epa/Fish Oil [[place]-3 Fish Oil 1,000 MG Sfgl] 1 cap PO BID 12/11/18 [History] Simvastatin 20 mg PO DAILY 12/11/18 [History] Warfarin Sodium [Jantoven] 2.5 mg PO DAILY 12/11/18 [History] Acidophilus/Lactobac Spor [Acidolphilus X-Strength] 1 tab PO DAILY #14 tablet 12/14/18 [Rx] Past Medical History HEENT History: Reports: Allergic Rhinitis, Cataract Cardiovascular History: Reports: Afib, Arrhythmia, High Cholesterol, Hypertension Respiratory History: Reports: Asthma Genitourinary History: Reports: UTI, Recurrent [employer] History: Reports: Musculoskeletal History: Reports: Arthritis Psychiatric History: Reports: Dementia Other Psychiatric History: pt has onset of short term memory loss, is on aricept Endocrine/Metabolic History: Reports: Other (See Below) Other Endocrine/Metabolic History: prediabetic, diet controlled Hematologic History: Reports: Anticoagulation Therapy Dermatologic History: Reports: Other (See Below) Other Dermatologic History: previous investigations for malignancy, tested benign - Infectious Disease History Infectious Disease History: Reports: Chicken Pox, Measles, Mumps - Past Surgical History HEENT Surgical History: Reports: Cataract Surgery Cardiovascular Surgical History: Reports: None Respiratory Surgical History: Reports: None Female Surgical History: Reports: None Endocrine Surgical History: Reports: None Musculoskeletal Surgical History: Reports: None Oncologic Surgical History: Reports: Lumpectomy Dermatological Surgical History: Reports: Skin Biopsy Social & Family History - Family History Family Medical History: No Pertinent Family History - Tobacco Use Tobacco Use Status *Q: Never Tobacco User Second Hand Smoke Exposure: No - Caffeine Use Caffeine Use: Reports: Coffee, Tea - Alcohol Use Days Per Week of Alcohol Use: 7 Number of Drinks Per Day: 1 Total Drinks Per Week: 7 Date of Last Drink: 09/21/20 - Recreational Drug Use Recreational Drug Use: No H&P Review of Systems - Review of Systems: Review Of Systems: See Below General: Reports: Weight Loss HEENT: Reports: No Symptoms Pulmonary: Reports: No Symptoms Cardiovascular: Reports: No Symptoms Gastrointestinal: Reports: No Symptoms Genitourinary: Reports: No Symptoms Musculoskeletal: Reports: No Symptoms Skin: Reports: No Symptoms Psychiatric: Reports: Confusion Neurological: Reports: Confusion, Pre-Existing Deficit Hematologic/Lymphatic: Reports: Easy Bleeding, Other (INR >10, will hold coumadin today) Exam - Exam Exam: See Below - Vital Signs Vital Signs: Last Vital Signs Temp 98 F 09/22/20 10:58 Pulse 104 H 09/22/20 10:58 Resp 16 09/22/20 10:58 BP 123/86 09/22/20 10:58 Pulse Ox 99 09/22/20 10:58 Weight: 134 lb - Exam Quality Assessment: Other General: Alert, Oriented Lungs: Clear to Auscultation, Normal Respiratory Effort Cardiovascular: Irregular Rhythm GI/Abdominal Exam: Normal Bowel Sounds, Soft, Non-Tender Back Exam: Normal Inspection Extremities: Normal Inspection Skin: Warm, Dry, Intact Neuro Extensive - Mental Status: Alert, Normal Mood/Affect, Memory Loss-Remote Events, Memory Loss-Recent Events Psychiatric: Alert, Normal Affect, Normal Mood - Patient Data Lab Results Last 24 hrs: Laboratory Results - last 24 hr 09/22/20 09/22/20 Range/Units 10:45 15:25 PT > 93.9 H (9.0-11.5) sec INR > 10.0 H* (1.0-3.5) SARS CoV-2 RNA Rapid FREDERICK Negative Sepsis Event Note - Evaluation Sepsis Screening Result: Sepsis Risk - Focused Exam Vital Signs: Vital Signs Temp Pulse Resp BP Pulse Ox 12/17/20 10:58 98 F 104 H 16 123/86 99 *Q Meaningful Use (ADM) - VTE *Q VTE Pharmacological Contraindications *Q: High INR Value VTE Anticoagulation Contraindications: Med/TX Not Indicated/Need Problem List Initiated/Reviewed/Updated: Yes Orders Last 24hrs: Active Orders 24 hr Category Date Time Status Communication Order [RC] PER UNIT ROUTINE Care 09/22/20 14:57 Active Intake and Output [RC] 06,18 Care 09/22/20 15:11 Active Oxygen Therapy [RC] PRN Care 09/22/20 15:09 Active Pneumonia Education [RC] DAILY Care 09/22/20 14:57 Active RT Incentive Spirometry [RC] 08,10,12,14,16,18,20 Care 09/22/20 14:57 Active Up With Assistance [RC] ASDIRECTED Care 09/22/20 15:09 Active VTE/DVT Education [RC] Per Unit Routine Care 09/22/20 15:09 Active Vital Signs [RC] 04,08,12,16,20,00 Care 09/22/20 15:09 Active Adult Diet [DIET] Diet 09/23/20 Breakfast Ordered Regular Diet [DIET] Diet 09/22/20 Dinner Ordered CULTURE BLOOD [BC] Routine Lab 09/22/20 15:42 Received CULTURE BLOOD [BC] Stat Lab 09/22/20 15:30 Received CULTURE MRSA SURVEY [RM] Routine Lab 09/22/20 15:00 Received Acetaminophen [TylenoL] Med 09/22/20 15:17 Active 650 mg PO Q4H PRN Doxycycline [Vibramycin] Med 09/22/20 20:00 Active 100 mg PO Q12HR Ondansetron [Zofran] Med 09/22/20 15:17 Active 4 mg IV Q4H PRN Sodium Chloride 0.9% [Normal Saline] 1,000 ml Med 09/22/20 15:00 Active IV ASDIRECTED cefTRIAXone [Rocephin] 2 gm Med 09/22/20 16:00 Active Sodium Chloride 0.9% [Normal Saline] 50 ml IV Q24H Anticoagulation Contraindications VTE [AST] Per Unit Oth 09/22/20 15:17 Ordered Routine Give supplemental Oxygen PRN [COMM] Routine Oth 09/22/20 14:57 Ordered VTE Pharmacological Contraindications [AST] Per Unit Oth 09/22/20 15:09 Ordered Routine Medication Orders Acetaminophen (Tylenol) 650 mg PO Q4H PRN PRN Reason: Pain (Mild 1-3)/fever Doxycycline Hyclate (Vibramycin) 100 mg PO Q12HR [facility] Sodium Chloride (Normal Saline) 1,000 mls @ 125 mls/hr IV ASDIRECTED [facility] Ceftriaxone Sodium 2 gm/ (Sodium Chloride) 50 mls @ 200 mls/hr IV Q24H [facility] Last Admin: 09/22/20 15:57 Dose: 200 mls/hr Documented by: LUANN Ondansetron HCl (Zofran) 4 mg IV Q4H PRN PRN Reason: Nausea/Vomiting
[2020-09-22] MEDS: Doxycycline 100 MG Cap PO SCH (20:16)
[2020-09-22] MEDS ORDERED: Loratadine 10 MG Tab PO PRN (22:57)
--- NOTE | 2020-09-22 23:07 | PCM.SN.2 ---
- Free Text/Narrative Note: Barry Das Hospitalist CONSULTATION NOTE: eHospitalist was contacted by [facility] with request of consultation for fatigue, possible pneumonia HPI: 80-year-old female who was referred from the clinic. She does have a history of dementia and primarily the history is provided by her . He reports that she has not been feeling well for the past month or so. She has been seen several times both virtually and then today in clinic. She does have Covid test checked multiple times including a test today which was negative. She has had rather nonspecific symptoms, mostly fatigue tiredness low appetite and noted to be drowsy. She has had significant weight loss of 15 pounds. Her notes that she has woken up sweating a few times a week over the past several weeks as well. Only symptoms she has been complaining about and a focal nature is some sinus congestion sinus headaches and drainage down the back of her throat which occasionally makes her nauseated. She has not had any vomiting. But again is noted to have low oral intake and appetite. She reports she does feel dizzy when getting out of bed. No specific cough has been noted. No diarrhea or skin rashes noted The chest x-ray did have the appearance of a possible infiltrate Laboratory studies from yesterday include a hemoglobin of 13.3, white blood cell count 8.9, platelets 5 6. INR supratherapeutic at greater than 10. Sodium 132 potassium 3.7 chloride 94 BUN 16 creatinine 1.2 which appears near baseline. Leukocytosis 181, calcium 8.9, bili 1.5 AST 21 ALT 30 alk phos 73. TSH was 2.64. INR greater than 10 Home Medications: Warfarin Metoprolol Lisinopril Simvastatin Claritin Multiple vitamin supplements Pertinent Medical History: HTN a fib on warfarin hyperlipidemia allergies UTI requiring hospitalizations in December 2018 Dementia Pertinent Social History: Lives with Ramsey. Admit to drinking 1 glass of wine daily. In the past used to drink 2 glasses of wine with supper. However since her appetite has been decreased this is been reduced to 1 Exam (performed via interactive video with assistance of bedside nurse): General: alert, cooperative, no acute distress HEENT: oral mucosa pink and moist without erythema Lungs: clear to auscultation bilaterally without crackle or wheeze CV: Irregularly irregular rhythm without loud murmur rub or gallop Abd: [bowel sounds present, denies tenderness and does not exhibit signs of pain with palpation done by bedside nurse Ext: no pitting edema noted Assessment and Plan: 80-year-old female admitted with generalized symptoms of weight loss low appetite fatigue and possible pulmonary infiltrate. Negative Covid test today Weight loss Fatigue Night sweats Poor oral intake Possible pulmonary infiltrate Supratherapeutic INR At this time with relatively nonspecific symptoms will provide fluid hydration overnight. Will initiate blood cultures followed by empiric antibiotics for possible pneumonia. Recommendation is to hydrate overnight and obtain a CT chest abdomen pelvis tomorrow given the B type symptoms she is experiencing. We will repeat laboratory studies in the morning including CBC with differential, BMP and INR. She does have a quite supratherapeutic INR greater than 10 however no evidence of current bleeding therefore will hold warfarin dosing for now. Antibiotics chosen to cover for community-acquired pneumonia ceftriaxone and azithromycin. Continue metoprolol but held lisinopril. With weight loss and orthostatic symptoms would start limiting BP medications and follow BP closely Thank you for including Barry Das Hospitalist in the patients care. This service is available for further assistance as requested by your care team by calling [phone].
[2020-09-23] MEDS: Doxycycline 100 MG Cap PO SCH ×2 (07:25→19:34)
[2020-09-23] MEDS: Simvastatin 20 MG Tab PO SCH (07:26)
[2020-09-23] MEDS: Metoprolol Tartrate 100 MG Tab PO SCH ×3 (07:27→19:34)
[2020-09-23] MEDS ORDERED: Sodium Chloride 0.9% 10 ML Syringe FLUSH SCH (08:00)
--- NOTE | 2020-09-23 08:40 | PCM.PN ---
- General Info Date of Service: 09/23/20 Subjective Update: This is a 80yo F Functional Status: Reports: Pain Controlled, Tolerating Diet, Ambulating - Review of Systems General: Reports: No Symptoms HEENT: Reports: No Symptoms Pulmonary: Reports: Cough Cardiovascular: Reports: No Symptoms Gastrointestinal: Reports: No Symptoms Genitourinary: Reports: No Symptoms Musculoskeletal: Reports: No Symptoms Skin: Reports: No Symptoms Neurological: Reports: Weakness Psychiatric: Reports: No Symptoms - Patient Data Vitals - Most Recent: Last Vital Signs Temp 36.4 C 09/23/20 08:00 Pulse 71 09/23/20 08:02 Resp 16 09/23/20 08:00 BP 126/88 09/23/20 08:02 Pulse Ox 94 L 09/23/20 08:00 Weight - Most Recent: 60.781 kg I&O - Last 24 Hours: Intake & Output 09/22/20 09/23/20 09/23/20 22:59 06:59 14:59 Intake Total 640 150 Output Total 650 Balance 640 -500 Lab Results Last 24 Hours: Laboratory Results - last 24 hr 09/22/20 09/22/20 09/23/20 Range/Units 10:45 15:25 06:10 WBC 7.1 D (4.0-11.0) K/uL RBC 3.46 L (3.80-5.80) M/uL Hgb 11.3 L (11.5-16.5) g/dL Hct 33.6 L (37.0-47.0) % MCV 97 H (76-96) fL MCH 32.7 H (27.0-32.0) pg MCHC 33.6 (31.0-35.0) g/dL RDW 12.3 (11.0-16.0) % Plt Count 438 (150-500) K/uL MPV 8.3 (6.0-10.0) fL Neut % (Auto) 60.8 (45.0-70.0) % Lymph % (Auto) 16.2 L (20.0-40.0) % Fisher % (Auto) 9.5 (3.0-10.0) % Eos % (Auto) 12.8 H (1.0-5.0) % Baso % (Auto) 0.7 H (0.0-0.5) % Neut # (Auto) 4.29 (2.00-7.50) K/uL Lymph # (Auto) 1.14 L (1.50-4.00) K/uL Fisher # (Auto) 0.67 (0.20-0.80) K/uL Eos # (Auto) 0.90 H (0.04-0.40) K/uL Baso # (Auto) 0.05 (0.02-0.10) K/uL PT > 93.9 H (9.0-11.5) sec INR > 10.0 H* (1.0-3.5) Sodium (136-145) mmol/L Potassium (3.5-5.1) mmol/L Chloride (98-107) mmol/L Carbon Dioxide (21.0-32.0) mmol/L Anion Gap (5.0-15.0) mmol/L BUN (8-26) mg/dL Creatinine (0.55-1.02) mg/dL Est Cr Clr Drug Dosing mL/min Estimated GFR (MDRD) (>60) MLS/MIN BUN/Creatinine Ratio (6-25) Glucose (74-100) mg/dL Calcium (8.5-10.1) mg/dL SARS CoV-2 RNA Rapid FREDERICK Negative 09/23/20 09/23/20 Range/Units 06:10 06:10 WBC (4.0-11.0) K/uL RBC (3.80-5.80) M/uL Hgb (11.5-16.5) g/dL Hct (37.0-47.0) % MCV (76-96) fL MCH (27.0-32.0) pg MCHC (31.0-35.0) g/dL RDW (11.0-16.0) % Plt Count (150-500) K/uL MPV (6.0-10.0) fL Neut % (Auto) (45.0-70.0) % Lymph % (Auto) (20.0-40.0) % Fisher % (Auto) (3.0-10.0) % Eos % (Auto) (1.0-5.0) % Baso % (Auto) (0.0-0.5) % Neut # (Auto) (2.00-7.50) K/uL Lymph # (Auto) (1.50-4.00) K/uL Fisher # (Auto) (0.20-0.80) K/uL Eos # (Auto) (0.04-0.40) K/uL Baso # (Auto) (0.02-0.10) K/uL PT 91.6 H (9.0-11.5) sec INR 9.3 H* (1.0-3.5) Sodium 138 (136-145) mmol/L Potassium 4.0 (3.5-5.1) mmol/L Chloride 101 (98-107) mmol/L Carbon Dioxide 28.9 (21.0-32.0) mmol/L Anion Gap 12.1 (5.0-15.0) mmol/L BUN 16 (8-26) mg/dL Creatinine 1.06 H (0.55-1.02) mg/dL Est Cr Clr Drug Dosing 41.97 mL/min Estimated GFR (MDRD) 50 L (>60) MLS/MIN BUN/Creatinine Ratio 15.1 (6-25) Glucose 93 D (74-100) mg/dL Calcium 8.3 L (8.5-10.1) mg/dL SARS CoV-2 RNA Rapid FREDERICK Med Orders - Current: Current Medications Acetaminophen (Tylenol) 650 mg PO Q4H PRN PRN Reason: Pain (Mild 1-3)/fever Doxycycline Hyclate (Vibramycin) 100 mg PO Q12HR [facility] Last Admin: 09/23/20 07:25 Dose: 100 mg Documented by: Sodium Chloride (Normal Saline) 1,000 mls @ 125 mls/hr IV ASDIRECTED [facility] Last Admin: 09/22/20 11:45 Dose: 125 mls/hr Documented by: Ceftriaxone Sodium 2 gm/ (Sodium Chloride) 50 mls @ 200 mls/hr IV Q24H [facility] Last Admin: 09/22/20 15:57 Dose: 200 mls/hr Documented by: Loratadine (Claritin) 10 mg PO DAILY PRN PRN Reason: Allergies Metoprolol Tartrate (Lopressor) 100 mg PO BID [facility] Last Admin: 09/23/20 08:02 Dose: 100 mg Documented by: Ondansetron HCl (Zofran) 4 mg IV Q4H PRN PRN Reason: Nausea/Vomiting Simvastatin (Zocor) 20 mg PO DAILY [facility] Last Admin: 09/23/20 07:26 Dose: 20 mg Documented by: Sodium Chloride (Saline Flush) 10 ml FLUSH BID [facility] Last Admin: 09/23/20 07:28 Dose: 10 ml Documented by: - Exam General: Alert, Cooperative HEENT: Pupils Equal, Pupils Reactive, EOMI Neck: Supple Lungs: Decreased Breath Sounds, Rhonchi Cardiovascular: Regular Rate, Regular Rhythm GI/Abdominal Exam: Normal Bowel Sounds, Soft, Non-Tender Back Exam: Normal Inspection Extremities: Normal Inspection Sepsis Event Note - Evaluation Sepsis Screening Result: Sepsis Risk - Focused Exam Vital Signs: Vital Signs Temp Pulse Pulse Resp BP BP Pulse Ox 09/23/20 08:02 71 126/88 09/23/20 08:00 36.4 C 16 126/88 94 L 09/23/20 04:00 36.9 C 96 16 130/74 99 09/23/20 00:00 36.6 C 90 16 124/78 99 - Problem List & Annotations (1) Pneumonia SNOMED Code(s): 412528475 Code(s): J18.9 - PNEUMONIA, UNSPECIFIED ORGANISM Status: Suspected Priority: High Current Visit: Yes Qualifiers: Pneumonia type: due to unspecified organism Laterality: bilateral Lung location: upper lobe of lung Qualified Code(s): J18.9 - Pneumonia, unspecified organism (2) Acute nontraumatic kidney injury SNOMED Code(s): 722350728267995 Code(s): N17.9 - ACUTE KIDNEY FAILURE, UNSPECIFIED Status: Acute Priority: High Current Visit: Yes (3) Electrolyte imbalance SNOMED Code(s): 315275916 Code(s): E87.8 - OTH DISORDERS OF ELECTROLYTE AND FLUID BALANCE, NEC Status: Acute Priority: High Current Visit: Yes (4) UTI (urinary tract infection) SNOMED Code(s): 14522196 Code(s): N39.0 - URINARY TRACT INFECTION, SITE NOT SPECIFIED Status: Acute Priority: High Current Visit: Yes (5) Weakness SNOMED Code(s): 85391582 Code(s): R53.1 - WEAKNESS Status: Acute Priority: High Current Visit: Yes - Problem List Review Problem List Initiated/Reviewed/Updated: Yes - Plan Plan:: Counseled on f/u labs in the AM. Discussed continued antibiotics and f/u d/c in am with home oral antibiotics. Discussed INR and vitamin K use. F/u INR as directed. F/u pneumonia as discussed.
[2020-09-23] MEDS: cefTRIAXone 2 GM in Sodium Chloride 0.9% 50 ML IV SCH (15:39)
[2020-09-23] MEDS ORDERED: Acetaminophen 325 MG Tab PO PRN (15:49)
[2020-09-24] MEDS ORDERED: Lactobacillus Acidophilus/Lactobacillus Sporogenes (Probiotic) Tab PO SCH (08:00)
[2020-09-24] MEDS: Doxycycline 100 MG Cap PO SCH (08:10)
[2020-09-24] MEDS: Metoprolol Tartrate 100 MG Tab PO SCH (08:10)
[2020-09-24] MEDS: Simvastatin 20 MG Tab PO SCH (08:10)
--- NOTE | 2020-09-24 11:18 | PCM.SN.2 ---
- Free Text/Narrative Note: patient will continue to take doxycycline PO 100mg BID for 5 days for pneumonia at home.
== END 2020-09-24 12:28 | disposition home or self-care (01) | DRG 194 ==
LOC: LB.ACU 10:19 → LB.MS 10:20
PROVIDERS: ADMIT Registered Nurse; ATTEND Registered Nurse
DX: J18.9 Pneumonia, unspecified organism (principal); N17.9 Acute kidney failure, unspecified; N39.0 Urinary tract infection, site not specified; E87.8 Other disorders of electrolyte and fluid balance, not elsewhere classified; R53.1 Weakness; Z20.828 Contact with and (suspected) exposure to other viral communicable diseases; R63.4 Abnormal weight loss; R53.83 Other fatigue; R61 Generalized hyperhidrosis; E78.00 Pure hypercholesterolemia, unspecified; I10 Essential (primary) hypertension; J45.909 Unspecified asthma, uncomplicated; M19.90 Unspecified osteoarthritis, unspecified site; F03.90 Unspecified dementia, unspecified severity, without behavioral disturbance, psychotic disturbance, mood disturbance, and anxiety; Z79.01 Long term (current) use of anticoagulants; Z79.899 Other long term (current) drug therapy; Z88.2 Allergy status to sulfonamides; Z98.49 Cataract extraction status, unspecified eye
CPT/HCPCS: 36415; 80048; 85025; 85610; 87040; A9270-GY; J0696; J3430; J7030; J7050; U0002